=== PATIENT | male | born 1970 | race Caucasian/White ===

== ENCOUNTER 2018-03-03 17:14 | Observation (INO) ==
[2018-03-03] MEDS ORDERED: 0.9 % Sodium Chloride 500 ML IVC ONE (18:01)
--- NOTE | 2018-03-03 18:37 | Emergency Department Note ---
Disposition Clinical Impression: Chest pain Qualifiers: Chest pain type: unspecified Qualified Code(s): R07.9 - Chest pain, unspecified Disposition: Admitted As Inpatient Condition: Good Referrals: NONE,PCP [Primary Care Provider] - Stanislav Rowan [Family Provider] - Forms: ED Satisfaction Letter Time of Disposition: 19:55 Chest Pain HPI - General Chief Complaint: ED Chest Pain Stated Complaint: CP,Weakness X2days Time Seen by Provider: 03/03/18 17:31 Source: patient Mode of arrival: ambulatory Limitations: no limitations Vital Signs Reviewed: Yes Nursing Notes Reviewed: Yes - History of Present Illness HPI Narrative: Patient presents to the ED with the chief complaint of chest pain. Patient reports that he does have a history of blood pressure but does not take medication and has not seen a physician in about 20 years. States that he was doing yard work 2 days ago and started developing left-sided chest pressure and heaviness. It radiated into his back, left shoulder and left jaw. States that he was sweaty but he was working outside. Did get nauseated but no vomiting. No associated shortness of breath past what he would expect for doing yard work. States that it took several hours for the pain to start to decrease, but that anytime he exerts himself that the pain will start coming back. He did have to walk quite a ways from the parking lot today and had a recurrence of his chest pain. Does smoke and does have a family history of heart disease, but no early cardiac . Severity scale (1-10): 1 - Related Data Home Medications Medication Instructions Recorded Confirmed Chlorpheniramine/Phenylephrine 1 tab PO DAILY 03/03/18 03/03/18 [Eql Sinus-Allergy PE Tablet] Allergies Allergy/AdvReac Type Severity Reaction Status Date / Time Penicillins Allergy Anaphylaxis Verified 03/03/18 18:31 Review of Systems: As reviewed in the HPI. All other systems reviewed are negative or normal. Chest Pain PMH - Past Medical History Medical history: Reports: no medical history Psychiatric history: Reports: anxiety - Social History Smoking Status: Current every day smoker Alcohol use: Reports: occasionally Drug use: Reports: marijuana Physical Exam CONSTITUTIONAL: [well appearing in no acute distress] SKIN: [Warm, dry, and intact without rash] EYES: [extraocular movements are grossly intact, clear conjunctiva] HENT: [Normocephalic, atraumatic, moist mucus membranes] NECK: [no obvious swelling, normal range of motion] PULMONARY: [normal chest rise and fall, no respiratory distress or stridor CARDIOVASCULAR: [regular rate, distal extremities are warm and well perfused] GASTROINSTESTINAL: [nondistended, non-tender] GENITOURINARY: [deferred] NEUROLOGIC: [normal speech, moves all extremities] MUSCULOSKELETAL: [no gross deformities, atraumatic] PSYCHIATRIC: [normal mood and affect] - General General appearance: alert Course Course Narrative: Patient presenting with exertional chest pain. No history of coronary disease, but his story certainly concerning. Labs, chest x-ray, EKG and admit. We will also give him nitroglycerin and aspirin. - Consultations Consultation #1: Admitted to the hospitalist, Dr. Mae. Time: 19:51 Vital Signs Temperature 98.7 F 03/03/18 17:27 Pulse Rate 83 03/03/18 17:27 Respiratory Rate 16 03/03/18 17:27 Blood Pressure 147/83 03/03/18 17:27 O2 Sat by Pulse Oximetry 95 03/03/18 17:27 Temperature 98.7 F 03/03/18 18:00 Pulse Rate 83 03/03/18 18:00 Respiratory Rate 16 03/03/18 18:00 Blood Pressure 147/83 03/03/18 18:00 O2 Sat by Pulse Oximetry 95 03/03/18 18:00 Oxygen Delivery Oxygen Delivery Room Air Chest Pain - Medical Records Medical records reviewed: Yes I reviewed the patient's medical records. - Lab Data Lab results reviewed: Yes I reviewed the patient's lab results. Result diagrams: 03/03/18 18:20 03/03/18 18:20 Lab Results 03/03/18 03/03/18 03/03/18 Range/Units 18:20 18:20 18:20 WBC 11.1 (4.3-11.1) K/mcL RBC 4.77 (4.19-5.50) M/mcL Hgb 16.0 (12.9-16.9) g/dL Hct 44.9 (37.5-50.1) % MCV 94.1 (83.0-100.0) fL MCH 33.5 H (28.0-33.3) pg MCHC 35.6 H (31.6-35.5) g/dL RDW 13.0 (11.5-14.5) % Plt Count 268 (140-400) K/mcL MPV 9.1 L (9.4-12.4) fL Immature Gran % 0.5 (0-4) % Seg Neutrophils % 64.8 % Lymphocytes % 26.5 % Monocytes % 6.7 % Eosinophils % 1.2 % Basophils % 0.3 % Neutrophils # 7.2 (1.6-8.9) K/mcL Lymphocytes # 2.9 (0.6-4.6) K/mcL Monocytes # 0.7 (0.0-1.3) K/mcL Eosinophils # 0.1 (0.0-0.6) K/mcL Basophils # 0.0 (0.0-0.2) K/mcL PT 11.4 (9.4-12.1) Seconds INR 1.1 APTT 34.6 (26.0-36.0) Seconds Sodium (136-145) mEq/L Potassium (3.5-5.1) mEq/L Chloride (98-107) mEq/L Carbon Dioxide (23-29) mEq/L BUN (6-20) mg/dL Creatinine (0.70-1.30) mg/dL Est GFR ( Amer) (> 60) Est GFR (Non-Af Amer) (> 60) BUN/Creatinine Ratio (6-26) Glucose (70-105) mg/dL Calculated Osmolality (280-300) Calcium (8.6-10.3) mg/dL Troponin I (< 0.04) ng/mL B-Natriuretic Peptide 21 (Less than 100) pg/mL 03/03/18 Range/Units 18:20 WBC (4.3-11.1) K/mcL RBC (4.19-5.50) M/mcL Hgb (12.9-16.9) g/dL Hct (37.5-50.1) % MCV (83.0-100.0) fL MCH (28.0-33.3) pg MCHC (31.6-35.5) g/dL RDW (11.5-14.5) % Plt Count (140-400) K/mcL MPV (9.4-12.4) fL Immature Gran % (0-4) % Seg Neutrophils % % Lymphocytes % % Monocytes % % Eosinophils % % Basophils % % Neutrophils # (1.6-8.9) K/mcL Lymphocytes # (0.6-4.6) K/mcL Monocytes # (0.0-1.3) K/mcL Eosinophils # (0.0-0.6) K/mcL Basophils # (0.0-0.2) K/mcL PT (9.4-12.1) Seconds INR APTT (26.0-36.0) Seconds Sodium 139 (136-145) mEq/L Potassium 4.0 (3.5-5.1) mEq/L Chloride 106 (98-107) mEq/L Carbon Dioxide 26 (23-29) mEq/L BUN 10 (6-20) mg/dL Creatinine 0.96 (0.70-1.30) mg/dL Est GFR ( Amer) > 60 (> 60) Est GFR (Non-Af Amer) > 60 (> 60) BUN/Creatinine Ratio 10 (6-26) Glucose 131 H (70-105) mg/dL Calculated Osmolality 289 (280-300) Calcium 9.6 (8.6-10.3) mg/dL Troponin I < 0.03 (< 0.04) ng/mL B-Natriuretic Peptide (Less than 100) pg/mL - Radiology Data Radiology results reviewed: Yes I reviewed the patient's radiology results. - EKG Data EKG attestation: Yes I reviewed and interpreted this EKG. EKG results narrative: Sinus rhythm, rate 86, ID interval 142, QRS 113, QTC 403, left axis deviation, intraventricular conduction delay, no acute ischemic changes Heart Score - Score History: Highly Suspicious EKG: Non Specific repolarisation Disturbance Age: 45-65 Risk Factors: 1-2 risk factors Troponin: Less than normal limit HEART Score Total: 5
[2018-03-03] MEDS ORDERED: Aspirin 325 MG TABLET PO ONE (18:50)
[2018-03-03] MEDS ORDERED: Nitroglycerin 0.4 MG TAB.SUBL SL PRN ×2 (18:50→20:58)
[2018-03-03 18:51] LABS: Basophils % 0.3 %; Eosinophils # 0.1 K/mcL (0.0-0.6); Eosinophils % 1.2 %; Hematocrit 44.9 % (37.5-50.1); Immature Granulocytes % 0.5 % (0-4); Lymphocytes # 2.9 K/mcL (0.6-4.6); Lymphocytes % 26.5 %; Mean Corpuscular HGB Conc 35.6 g/dL (31.6-35.5); Mean Corpuscular Hemoglobin 33.5 pg (28.0-33.3); Mean Corpuscular Volume 94.1 fL (83.0-100.0); Mean Platelet Volume 9.1 fL (9.4-12.4); Monocytes # 0.7 K/mcL (0.0-1.3); Monocytes % 6.7 %; Neutrophils # 7.2 K/mcL (1.6-8.9); Platelet Count 268 K/mcL (140-400); Red Blood Count 4.77 M/mcL (4.19-5.50); Segmented Neutrophils % 64.8 %
--- NOTE | 2018-03-03 18:54 | Emergency Department Note ---
Disposition Clinical Impression: Chest pain Qualifiers: Chest pain type: unspecified Qualified Code(s): R07.9 - Chest pain, unspecified Disposition: Still a Patient Referrals: NONE,PCP [Primary Care Provider] - Stanislav Rowan [Family Provider] - Forms: ED Satisfaction Letter General Adult HPI - General Chief complaint: ED Chest Pain Stated complaint: CP,Weakness X2days Time Seen by Provider: 03/03/18 17:31 - History of Present Illness Pain Scale: 1 - Related Data Allergies Allergy/AdvReac Type Severity Reaction Status Date / Time Penicillins Allergy Anaphylaxis Verified 03/03/18 18:31 Past Medical History - Past Medical History Medical history: Reports: no medical history Psychiatric history: Reports: anxiety - Social History Smoking Status: Current every day smoker Smokeless Tobacco Status: No Alcohol use: Reports: occasionally Drug use: Reports: marijuana Physical Exam - General General appearance: alert Course Vital Signs Temperature 98.7 F 03/03/18 17:27 Pulse Rate 83 03/03/18 17:27 Respiratory Rate 16 03/03/18 17:27 Blood Pressure 147/83 03/03/18 17:27 O2 Sat by Pulse Oximetry 95 03/03/18 17:27 Temperature 98.7 F 03/03/18 18:00 Pulse Rate 83 03/03/18 18:00 Respiratory Rate 16 03/03/18 18:00 Blood Pressure 147/83 03/03/18 18:00 O2 Sat by Pulse Oximetry 95 03/03/18 18:00 Oxygen Delivery Oxygen Delivery Room Air Attestation Statement - Attestation Attestation: I examined this patient and my medical decision-making was reviewed with the Resident Physician. I agree with the documented findings, disposition and treatment plan as described except to the extent set forth below. 47 yaer old male presntes ot the ED with complaints of exertional dyspnea with midsternal chest pressure with radiation into his jaw and neck which was more pronounced when he was mowing his grass and walking up to the ED today. History is concerning for ACS we will treat with aSA and nitro and admit to medicine.
[2018-03-03 18:55] LABS: Troponin I < 0.03 ng/mL (< 0.04)
[2018-03-03 18:56] LABS: BUN/Creatinine Ratio 10 (6-26); Blood Urea Nitrogen 10 mg/dL (6-20); Calcium 9.6 mg/dL (8.6-10.3); Carbon Dioxide 26 mEq/L (23-29); Chloride 106 mEq/L (98-107); Glucose 131 mg/dL (70-105); Osmolality,Calculated 289 (280-300); Sodium 139 mEq/L (136-145); eGFR For African Americans > 60 (> 60); eGFR For Non-African Americans > 60 (> 60)
[2018-03-03 19:06] LABS: INR 1.1; Prothrombin Time 11.4 Seconds (9.4-12.1)
[2018-03-03 19:08] LABS: Activated Partial Thrombo Time 34.6 Seconds (26.0-36.0)
[2018-03-03 19:48] LABS: D-Dimer < 215 ng/mLFEU (0-500)
[2018-03-03] MEDS ORDERED: D5% in Water 1,000 ML IVC PRN (20:59)
[2018-03-03] MEDS ORDERED: Dextrose Gel 15 GM/37.5 ML TUBE PO PRN ×2 (20:59)
[2018-03-03] MEDS ORDERED: *HR* Dextrose 50 % in Water (Syg) 50 ML SYRINGE IVP PRN (20:59)
[2018-03-03] MEDS ORDERED: Naloxone 0.4 MG/ML INJ IVP PRN (21:00)
[2018-03-03] MEDS ORDERED: Insulin LISPRO 300 UNITS/3 ML VIAL SQ SCH (21:00)
[2018-03-03] MEDS ORDERED: *HR* HYDROcodone/Acet 5/325 mg TABLET PO PRN (21:00)
[2018-03-03] MEDS ORDERED: Acetaminophen 325 MG TABLET PO PRN (21:00)
[2018-03-03 21:58] LABS: Estimated Average Glucose 117 mg/dl; Hemoglobin A1C 5.7 %
--- NOTE | 2018-03-04 00:06 | Internal Med History&Physical ---
Date of Encounter: 03/03/18 Time of Encounter: 22:07 Internal Medicine - H&P: HPI Chief complaint: "Chest pain, I know its my heart" Admitted From: Emergency Dept Plans for Post Hospital Care: Home History of present illness: Mr. Luz is a 47 year old male with a remote PMH of HTN who presents to ED with chest pain. Pain is located in middle chest and radiates to back, left shoulder, and left jaw. This started about 2 days ago while doing yard work. He states that the pain still keeps coming back with exertion. He denies diaphoresis, SOB, fever, chills, abdominal pain, heartburn, nausea, vomiting, changes in bladder, or changes in bowels. He states that pain at present time is a little better, but still there. He has no other complaints at this time. EKG was NSR and initial troponin WNL in ED. I was asked by ED physician to admit patient for ACS ruleout. Past Med Surg Social Fam HX - Past Medical History Attestation: Yes The following information was validated with the patient. Medical history: no medical history, hypertension Psychiatric history: anxiety - Past Surgical History Surgical History: no surgical history - Social History Smoking Status: Current every day smoker Packs per day: 1.5 Smokeless Tobacco Status: No Alcohol use: occasionally Drug use: marijuana - Family History Father Hx Family Cardiac Disorders: Yes (heart disease) Mother Hx Family Respiratory Disorders: Yes (ashtma, copd) Hx Family Endocrine Disorder: Yes (DM) - Additional Family History Additional family history: Reviewed family history with patient. Internal Medicine - H&P: Meds Chlorpheniramine/Phenylephrine [Eql Sinus-Allergy PE Tablet] 1 tab PO DAILY [History] 3 Allergy/AdvReac Type Severity Reaction Status Date / Time Penicillins Allergy Anaphylaxis Verified 03/03/18 18:31 All Systems PM: A 10-system review of systems was performed and is negative for pertinent findings except as documented above in the HPI. - Constitutional Vitals: Temp Pulse Resp BP Pulse Ox 98.7 F 83 14 143/91 95 03/03/18 18:00 03/03/18 18:00 03/03/18 20:42 03/03/18 20:42 03/03/18 18:00 General appearance: Present: cooperative, A&O X 3, pleasant, no acute distress, loss of weight, answers questions appropriately - Head Head exam: Present: atraumatic, normal inspection, normocephalic - Eye Eye exam: Present: EOMI, normal appearance, PERRL. Absent: conjunctival injection, nystagmus, scleral icterus - ENT ENT exam: Present: mucous membranes moist, normal external ear exam, normal oropharynx - Neck Neck exam general surgery: Present: supple, trachea midline. Absent: lymphadenopathy, tenderness, thyromegaly - Respiratory Respiratory exam: Present: CTAB. Absent: accessory muscle use, rales, rhonchi, stridor Additional comments: Normal WOB - Cardiovascular Cardiovascular exam: Present: RRR, +S1, +S2. Absent: diastolic murmur, gallop, rubs, systolic murmur Additional comments: No BLE edema - GI/Abdominal GI/Abdominal exam: Present: normal bowel sounds, soft. Absent: distended, hepatomegaly, mass, splenomegaly, tenderness - Neurological Exam Neurological exam: Present: alert, CN II-XII intact, oriented X3, no focal deficits, strengths equal and symetr throughout. Absent: altered, motor sensory deficit, facial droop, speech deficit - Psychiatric Psychiatric exam: Present: normal affect, normal mood. Absent: agitated, anxious, depressed - Skin Skin exam: Present: dry, intact, warm. Absent: cyanosis, rash Internal Med - H&P Results - Labs CBC & Chem 7: 03/03/18 18:20 03/03/18 18:20 Labs: Cardiac Enzymes 03/03/18 Range/Units 21:08 Troponin I < 0.03 (< 0.04) ng/mL - Assessment and plan (1) Chest pain Current Visit: Yes Status: Acute Assessment and plan: PMH significant for HTN. Has not seen physician in 20 years. Admit for observation. We will trend troponin, obtain ECHO in AM, and obtain stress test in AM. Continue nitroglycerin, aspirin, and Tylenol at this time. Consider cardiology consult if no improvement or concerning changes on tests. Qualifiers: Chest pain type: other chest pain Qualified Code(s): R07.89 - Other chest pain; R07.8 - Other chest pain (2) HTN (hypertension) Current Visit: Yes Status: Acute Assessment and plan: BP mildly above systolic 140s in ED. Does not know home medication he was on in past. It was discontinue when he "lost so much weight." Will add hydralazine 10 mg Q6H PRN hypertension. Qualifiers: Hypertension type: essential hypertension Qualified Code(s): I10 - Essential (primary) hypertension (3) DVT prophylaxis Current Visit: Yes Status: Acute Assessment and plan: Start lovenox 40 mg SQ QD. - Time Spent With Patient Total time spent is greater than 50% in coordination of care (as documented) at patient's floor/unit and/or counseling patient: less than 15 minutes
[2018-03-04] MEDS ORDERED: Regadenoson 0.4 MG/5 ML SYRINGE IVP ONE (05:38)
[2018-03-04] MEDS ORDERED: *HR* Enoxaparin 40 MG/0.4 ML SYRINGE SQ SCH (06:00)
[2018-03-04 06:27] LABS: Basophils % 0.4 %; Eosinophils # 0.2 K/mcL (0.0-0.6); Eosinophils % 2.2 %; Hematocrit 47.3 % (37.5-50.1); Hemoglobin 17.2 g/dL (12.9-16.9); Immature Granulocytes % 0.6 % (0-4); Lymphocytes # 2.9 K/mcL (0.6-4.6); Lymphocytes % 30.2 %; Mean Corpuscular HGB Conc 36.4 g/dL (31.6-35.5); Mean Corpuscular Hemoglobin 34.5 pg (28.0-33.3); Mean Platelet Volume 9.3 fL (9.4-12.4); Monocytes # 0.8 K/mcL (0.0-1.3); Monocytes % 8.5 %; Neutrophils # 5.7 K/mcL (1.6-8.9); Platelet Count 280 K/mcL (140-400); Red Blood Count 4.98 M/mcL (4.19-5.50); Red Cell Distribution Width 12.9 % (11.5-14.5); Segmented Neutrophils % 58.1 %
[2018-03-04 06:47] LABS: BUN/Creatinine Ratio 16 (6-26); Blood Urea Nitrogen 11 mg/dL (6-20); Calcium 9.5 mg/dL (8.6-10.3); Carbon Dioxide 23 mEq/L (23-29); Chloride 108 mEq/L (98-107); Chol/HDL Ratio 6.9 (0-4.9); Cholesterol 206 mg/dL (< 200); Glucose 109 mg/dL (70-105); HDL Cholesterol 30 mg/dL (40-59); Osmolality,Calculated 288 (280-300); Potassium 4.5 mEq/L (3.5-5.1); Sodium 139 mEq/L (136-145); Triglycerides 432 mg/dL (< 150); eGFR For African Americans > 60 (> 60); eGFR For Non-African Americans > 60 (> 60)
[2018-03-04] MEDS ORDERED: Aspirin Enteric Coated 81 MG Tablet PO SCH (09:00)
[2018-03-04] MEDS ORDERED: hydroCHLOROthiazide 25 MG TABLET PO SCH (09:15)
[2018-03-04] MEDS: Insulin LISPRO 300 UNITS/3 ML VIAL SQ SCH ×2 (09:49→12:54)
--- NOTE | 2018-03-04 14:10 | Cardiology Consult Note ---
Date of Encounter: 03/04/18 Time of Encounter: 14:00 Assessment and Plan (1) Chest pain Current Visit: Yes Status: Acute Patient presented with typical chest pain symptoms. Troponin negative x3. No acute ST/T wave abnormalities noted per ECG. Underwent exercise nuclear stress test which demonstrated small, mild inferolateral perfusion defect. Exercise ECG negative. NSVT observed at peak stress and recovery. Risk factors for CAD include: heavy tobacco use, HTN, HLD. Discussed medical mgmt vs. [facility] with possible PCI. At this time, patient is inclined to pursue a trial of medical therapy with close outpatient follow-up. Continue asa; Add betablocker, change zocor to atorvastatin. Will further discuss with Dr. Georges. Will coordinate outpatient follow-up. Qualifiers: Chest pain type: other chest pain Qualified Code(s): R07.89 - Other chest pain; R07.8 - Other chest pain (2) HLD (hyperlipidemia) Current Visit: Yes Status: Acute Start statin. Will stop zocor and change to atorvastatin. Qualifiers: Hyperlipidemia type: mixed hyperlipidemia Qualified Code(s): E78.2 - Mixed hyperlipidemia (3) HTN (hypertension) Current Visit: Yes Status: Acute Remains poorly controlled as inpatient. Will add betablocker today. Qualifiers: Hypertension type: essential hypertension Qualified Code(s): I10 - Essential (primary) hypertension (4) Tobacco abuse Current Visit: Yes Status: Acute Smoking cessation counseling provided. Discussion w patient/family: The assessment and plan as outlined above was discussed with the patient and/or family members who expressed understanding and agreement. All questions were answered. Thank you for involving us in the care of your patient. Please call with any questions. The patient will be discussed and reviewed with Dr. Georges; changes to be made accordingly. History of Present Illness Consult date: 03/04/18 Requesting physician: Lori Gutierrez Consult reason: Abnormal stress test Chief complaint: Chest pain History of present illness: Mr. Luz is a 47 year old male with PMHx significant for HTN who presented to the ED with complaints of chest discomfort that started on Saturday morning while doing yardwork. Chest discomfort described as heaviness and pressure with radiation to back and left arm. Associated symptoms include weakness. Reports symptoms lasted nearly 6 hours before resolving, now has "slight" chest discomfort that has remained constant since Saturday. Upon arrival to ED troponin was negative, ECG without ST/T wave abnormalities. Reports does not follow with PCP, has HTN but does not take any medications. Denies prior CV testing or evaluation. Cardiology consulted today for abnormal stress test. Past Med Surg Social Fam HX - Past Medical History Attestation: Yes The following information was validated with the patient. Source: patient Medical history: hypertension Psychiatric history: anxiety - Past Surgical History Surgical History: no surgical history - Social History Smoking Status: Current every day smoker Packs per day: 1.5 Smokeless Tobacco Status: No Alcohol use: occasionally Drug use: marijuana - Family History Father Hx Family Cardiac Disorders: Yes (heart disease) Mother Hx Family Respiratory Disorders: Yes (ashtma, copd) Hx Family Endocrine Disorder: Yes (DM) Medications and Allergies Chlorpheniramine/Phenylephrine [Eql Sinus-Allergy PE Tablet] 1 tab PO DAILY [History] 3 Allergy/AdvReac Type Severity Reaction Status Date / Time Penicillins Allergy Anaphylaxis Verified 03/03/18 18:31 All Systems Review: The remainder of the systems were reviewed and are negative - Cardiovascular Cardiovascular: as per HPI Physical Examination Vital Signs, Last 4 Hours Temp Pulse Resp BP Pulse Ox 03/04/18 11:18 98.0 F 77 14 170/93 95 General: Conversant, No Apparent Distress HEENT: Atraumatic, Normocephaly, Mucus Membranes Moist Cardiac: Reg Rate and Rhythm, Normal S1 and S2 Lungs: Normal Breath Sounds Neuro: Alert and responsive Abdomen: Soft Skin: No rashes noted on visualized skin Musculoskeletal: No Chest Wall Tenderness Extremities: No Edema, Normal Pulses Results 03/04/18 05:51 03/04/18 05:51 Lab Results 03/03/18 03/04/18 03/04/18 21:08 05:51 05:51 WBC 9.8 Hgb 17.2 H Hct 47.3 Plt Count 280 Sodium 139 Potassium 4.5 Chloride 108 H Carbon Dioxide 23 BUN 11 Creatinine 0.68 L Glucose 109 H Calcium 9.5 Troponin I < 0.03 Active Medications Acetaminophen (Tylenol) 650 mg PO Q6HR PRN PRN Reason: Mild Pain/Fever Stop: 09/02/18 21:01 Hydrocodone Bitart/Acetaminophen ([place] 5-325 Mg) 1 tab PO Q6HR PRN PRN Reason: Severe Pain Stop: 09/02/18 21:01 Aspirin (Aspirin Ec) 81 mg PO DAILY [facility] Stop: 09/03/18 09:01 Last Admin: 03/04/18 09:34 Dose: 81 mg Dextrose/Water (Dextrose 50% (Syg)) 25 ml IVP AD PRN PRN Reason: Hypoglycemia Stop: 09/02/18 21:00 Enoxaparin Sodium (Lovenox) 40 mg SQ 0600 [facility] PRN Reason: Protocol Stop: 09/03/18 06:01 Last Admin: 03/04/18 05:31 Dose: 40 mg Glucagon (Glucagen) 1 mg IM ONCE PRN PRN Reason: Hypoglycemia Stop: 09/02/18 21:00 Glucose (Gluctose) 15 gm PO ONCE PRN PRN Reason: Hypoglycemia Stop: 09/02/18 21:00 Glucose (Gluctose) 30 gm PO ONCE PRN PRN Reason: Hypoglycemia Stop: 09/02/18 21:00 Hydralazine HCl (Hydralazine) 10 mg IVP Q6HR PRN PRN Reason: Hypertension Stop: 09/02/18 21:04 Hydrochlorothiazide (Hydrochlorothiazide) 12.5 mg PO DAILY [facility] PRN Reason: Protocol Stop: 09/03/18 09:16 Last Admin: 03/04/18 09:50 Dose: Not Given Dextrose (Dextrose 5%) 1,000 mls @ 100 mls/hr IVC .Q10H PRN PRN Reason: HYPOGLYCEMIA Stop: 09/02/18 21:00 Insulin Human Lispro (Humalog) 0 units SQ TIDAC [facility] PRN Reason: Protocol Stop: 09/03/18 07:31 Last Admin: 03/04/18 12:54 Dose: Not Given Insulin Human Lispro (Humalog) 0 units SQ HS [facility] PRN Reason: Protocol Stop: 09/02/18 21:01 Last Admin: 03/03/18 22:02 Dose: Not Given Naloxone HCl (Narcan) 0.4 mg IVP Q2MIN PRN PRN Reason: SEE COMMENTS Stop: 09/02/18 21:01 Nitroglycerin (Nitroglycerin) 0.4 mg SL Q5MIN PRN PRN Reason: Chest Pain Stop: 09/02/18 20:59 Simvastatin (Zocor) 20 mg PO HS [facility] PRN Reason: Protocol Stop: 09/03/18 09:16 Last Admin: 03/04/18 09:50 Dose: Not Given - Imaging and Cardiology Echo: pending Cardiac cath: report reviewed - EKG Interpretation EKG results cardiology: personally reviewed Consult Discharge Plan - Plan Referrals: NONE,PCP [Primary Care Provider] - Stanislav Rowan [Family Provider] -
[2018-03-04] MEDS ORDERED: Metoprolol XL (24 HR) Succ 25 MG TAB.ER.24H PO SCH (14:30)
[2018-03-04 15:12] VITALS: BP 161/88
--- NOTE | 2018-03-04 17:03 | Electrocardiograph Report ---
[place] [id number] Test Date: 2018-03-03 Pat Name: Luigi Luz Department: 104 Room: 3B64 Gender: M Shucker: MILENA : 1970 Requested By: [id number] Order Number: [id number] Reading MD: Kiara Santana Measurements Intervals [place] Rate: 86 P: 66 IA: 142 QRS: -30 QRSD: 113 T: 40 QT: 360 QTc: 403 Interpretive Statements SINUS RHYTHM BORDERLINE LEFT AXIS DEVIATION INTRAVENTRICULAR CONDUCTION DELAY Electronically Signed On 03-04-2018 17:01:54 EDT by Kiara Santana
--- NOTE | 2018-03-04 17:24 | Discharge Summary ---
- NOTES TO OUTPATIENT PROVIDER Notes to Outpatient Provider: Patient was admitted for chest pain. Stress test was positive for ischemia. Echocardiogram showed LVEF of 60% with normal LV diastolic function no significant valvular dysfunction. Troponins were negative , EKG negative for ischemic changes. Patient was evaluated by cardiology for positive stress test. Patient opted for a trial of medical therapy with close outpatient follow-up versus [facility]. Patient will continue aspirin, beta isabel and change Zocor to atorvastatin. Orders not resulted at time of discharge: Pending orders 03/03/18 20:50 NM dalia perf SPECT multi [NM] Routine 03/04/18 06:00 EKG [ECG 12 lead ECG] [ECG] AM 0600 Date of Encounter: 03/04/18 Time of Encounter: 12:20 - Discharge Diagnosis (1) Chest pain Priority: Primary Status: Acute Assessment and Plan: Patient with no prior history of cardiac disease. Reports mom has no cardiac disease, unsure dad's medical history. Echocardiogram with preserved EF no significant valvular dysfunction. Troponins were negative, EKG without any ST changes. Stress test was positive for small, mild inferolateral perfusion defect. She was evaluated by cardiology , patient will trial medical therapy with close outpatient follow-up. Continue aspirin, beta isabel, statin. Qualifiers: Chest pain type: other chest pain Qualified Code(s): R07.89 - Other chest pain; R07.8 - Other chest pain (2) HTN (hypertension) Priority: Secondary Status: Chronic Assessment and Plan: Blood pressure mildly above goal. Patient states that he stopped taking his antihypertensive due to significant weight loss and he had no difficulties until recently. Patient and I discussed the ramifications of prolonged uncontrolled hypertension. He verbalized understanding She has been started on a beta isabel, as well as hydrochlorothiazide 12.5 mg by mouth daily. Patient will need to follow closely with cardiology, as well as primary care for continued monitoring and medication adjustments as needed. Qualifiers: Hypertension type: essential hypertension Qualified Code(s): I10 - Essential (primary) hypertension (3) DVT prophylaxis Priority: Secondary Status: Acute Assessment and Plan: Lovenox subcutaneous daily, patient was ambulatory. Hospital course: Mr. Luz is a 47 year old male with past medical history significant for hypertension, tobacco abuse substernal chest pain with radiation to left arm and left axilla. Echocardiogram shows preserved ejection fraction with normal LV DD and no significant valvular dysfunction. Patient's stress test was positive for ischemia. He was evaluated by cardiology they have decided on medical management and close follow-up in the office. Patient has had mild hypertension that has been chronic. He reports that he stopped taking his antihypertensive medications when he lost a significant amount of weight, approximately 100 pounds. Patient has been started on aspirin, beta isabel, thiazide diuretic, and a statin for elevated cholesterol and triglycerides. Patient does not have primary care, he will need to establish with primary care within the next 7-10 days for close management. Patient reports pain to left chest pain 10/23, described as a tightness with no other associated symptoms. Patient will follow closely with cardiology, medications have been sent to his pharmacy. Patient's A1c is 5.7%. Otherwise, vitals are stable and patient is appropriate for discharge. Discharge discussed with: patient, family - Time Spent with Patient Total time spent providing and/or coordinating discharge services: Less than 30 minutes - Discharge Medications Prescriptions: Aspirin Enteric Coated [Aspirin EC] 81 mg PO DAILY #30 tablet. Atorvastatin [Lipitor] 20 mg PO HS #30 tablet hydroCHLOROthiazide [Hydrochlorothiazide] 12.5 mg PO DAILY #30 tablet Metoprolol XL (24 HR) Succ [Toprol Xl] 12.5 mg PO DAILY #15 tab.er.24h Home Medications: Chlorpheniramine/Phenylephrine [Eql Sinus-Allergy PE Tablet] 1 tab PO DAILY [History] Aspirin Enteric Coated [Aspirin EC] 81 mg PO DAILY #30 tablet. 03/04/18 [Rx] Atorvastatin [Lipitor] 20 mg PO HS #30 tablet 03/04/18 [Rx] Metoprolol XL (24 HR) Succ [Toprol Xl] 12.5 mg PO DAILY #15 tab.er.24h 03/04/18 [Rx] hydroCHLOROthiazide [Hydrochlorothiazide] 12.5 mg PO DAILY #30 tablet 03/04/18 [ Rx] Allergies/Adverse Reactions: 3 Allergy/AdvReac Type Severity Reaction Status Date / Time Penicillins Allergy Anaphylaxis Verified 03/03/18 18:31 Date of admission: 03/03/18 20:09 Primary care physician: PCP NONE Consults: 03/03/18 21:03 Consult to [employer] [CONS] Routine Reason for SW Consult: Discharge Planning 03/04/18 12:10 Consult to Cardiology [CONS] Routine Comment: Consulting Provider: Cardiology Eneida Reason for Consult: Stress test positive for ischemia Time Notified: 12:11 Call Completed: Yes Discharging clinician: Lori Gutierrez Anticipated date of discharge: 03/04/18 - Constitutional Vitals: Temp Pulse Resp BP Pulse Ox 97.9 F 70 14 161/88 97 03/04/18 15:11 03/04/18 15:11 03/04/18 15:11 03/04/18 15:11 03/04/18 15:11 General appearance: Present: cooperative, A&O X 3, pleasant, no acute distress, loss of weight, answers questions appropriately - Head Head exam: Present: atraumatic, normal inspection, normocephalic - Eye Eye exam: Present: normal appearance, conjuntiva pink, sclera anicteric - Neck Neck exam general surgery: Present: supple, trachea midline. Absent: lymphadenopathy, tenderness - Respiratory Respiratory exam: Present: CTAB. Absent: accessory muscle use, decreased breath sounds, rales, respiratory distress, rhonchi, wheezes - Cardiovascular Cardiovascular exam: Present: RRR, +S1, +S2. Absent: diastolic murmur, gallop, rubs, systolic murmur - GI/Abdominal GI/Abdominal exam: Present: normal bowel sounds, soft. Absent: distended, hepatomegaly, tenderness - Extremities Exam Extremities exam: Present: normal capillary refill, normal inspection, warm, radial pulses palpable and symmetrical. Absent: calf tenderness, cyanotic, pedal edema - Neurological Exam Neurological exam: Present: alert, oriented X3, no focal deficits. Absent: facial droop, speech deficit - Skin Skin exam: Present: dry, intact, normal color, warm. Absent: rash - Patient Status Disposition: Home, Self-Care Condition: Good Functional capacity at discharge: independent ambulation Overall status at discharge: patient is progressing back to baseline - Discharge Instructions Follow Up With: NONE,PCP [Primary Care Provider] - Stanislav Rowan [Family Provider] - Additional Instructions: Take your medications as directed. You have 4 prescriptions at your pharmacy. Return to the ER as needed for any other problems or concerns, or if your symptoms return or worsen. Follow up with cardiology as scheduled. Find a PCP and establish care with them within the next 7-10 day. Return to your normal diet and activities as tolerated. - Diet and Activity Activity: as per physical therapy Diet: advance to your usual diet, low fat, low cholesterol
== END 2018-03-04 17:50 | disposition home or self-care (01) ==
LOC: EMEROO 17:14 → 3BNU 17:14
PROVIDERS: ADMIT Family Medicine; ATTEND Family Medicine